=== PATIENT | male | born 1935 | race Caucasian/White ===

== ENCOUNTER 2018-09-15 15:50 | Emergency (ER) | payer OTHER, MEDICAID ==
[~2018-09-15] VITALS: Ht 170.2 cm; Wt 86.6 kg
[~2018-09-15 15:50] MED LIST: ASPIRIN ADULT L81 M4; CILOSTAZOL100 M1 PO; CIPRO500 MG PO; CLINDAMYCIN HC300 MG PO; COL100 PO; COZAAR100 MG PO; LAC PO; LANTUS SOLOS100 U/M1 SQ; METFORMIN HCL1000 MG PO; NORCO1 TA2 PO; PIOGLITAZONE30 M1 PO; SIMVASTATIN10 M1 PO; [UNRECOGNIZED DRUG - OTHER] PO
[2018-09-15 15:53] VITALS: Ht 170.2 cm; Wt 86.6 kg
[2018-09-15 18:36] LABS: BASOPHIL % 0.2 % (0-2); PLATELET COUNT 274 x10^3mcL (130-400)
[2018-09-15 18:40] LABS: RED CELL DISTRIBUTION WIDTH 14.9 % (11.5-14.5)
[2018-09-15 18:44] LABS: CALCIUM 8.7 mg/dL (8.5-10.1); CARBON DIOXIDE 21.9 mmol/L (21-32); CHLORIDE SERUM 102 mmol/L (98-107); GLUCOSE SERUM 150 mg/dL (74-106); POTASSIUM SERUM 3.9 mmol/L (3.5-5.1); SODIUM SERUM 137 mmol/L (136-145)
[2018-09-15 18:48] LABS: ALBUMIN 3.6 g/dL (3.4-5.0); ALKALINE PHOSPHATASE 84 U/L (46-116); AST/SGOT 26 U/L (15-37); BILIRUBIN TOTAL 0.34 mg/dL (0.20-1.00); TOTAL PROTEIN, SERUM 7.7 g/dL (6.4-8.2)
[2018-09-15 18:56] LABS: ALT/SGPT 20 U/L (16-63)
[2018-09-15 20:21] VITALS: BP 135/85
== END 2018-09-15 20:21 | disposition home or self-care (01) ==
LOC: ED 15:50
PROVIDERS: Emergency Medicine
DX: R06.02 Shortness of breath (principal); R09.81 Nasal congestion
CPT/HCPCS: 36415; 83880; Q0092

== ENCOUNTER 2019-11-02 13:12 | Emergency (ER) | payer OTHER, MEDICAID ==
[~2019-11-02] VITALS: Ht 170.2 cm; Wt 91.6 kg
[2019-11-02 13:20] VITALS: Ht 170.2 cm; Wt 91.6 kg
[2019-11-02 14:39] LABS: CARBON DIOXIDE 23.9 mmol/L (21-32); CHLORIDE SERUM 103 mmol/L (98-107); SODIUM SERUM 139 mmol/L (136-145)
[2019-11-02 14:40] LABS: ALBUMIN 3.9 g/dL (3.4-5.0); BILIRUBIN TOTAL 0.3 mg/dL (0.20-1.00); CALCIUM 8.9 mg/dL (8.5-10.1); CREATININE SERUM 1.9 mg/dL (0.7-1.3); GLUCOSE SERUM 138 mg/dL (74-106); TOTAL PROTEIN, SERUM 7.7 g/dL (6.4-8.2)
[2019-11-02 14:41] LABS: ALKALINE PHOSPHATASE 83 U/L (46-116); ALT/SGPT 18 U/L (16-63); AST/SGOT 23 U/L (15-37)
[2019-11-02 14:52] LABS: BASOPHIL % 0.4 % (0-2); PLATELET COUNT 289 x10^3mcL (130-400); RED CELL DISTRIBUTION WIDTH 21.7 % (11.5-14.5)
[2019-11-02 16:36] LABS: microscopic required? NO
[2019-11-02 16:49] VITALS: BP 146/72
[2019-11-02 16:53] LABS: urine erythrocyte NEGATIVE (NEGATIVE)
== END 2019-11-02 16:49 | disposition home or self-care (01) ==
LOC: ED 13:12
PROVIDERS: Emergency Medicine
DX: R06.00 Dyspnea, unspecified (principal); R06.02 Shortness of breath; R63.5 Abnormal weight gain; I50.9 Heart failure, unspecified; R14.0 Abdominal distension (gaseous); E11.9 Type 2 diabetes mellitus without complications; E78.00 Pure hypercholesterolemia, unspecified; Z88.0 Allergy status to penicillin; Z88.8 Allergy status to other drugs, medicaments and biological substances
CPT/HCPCS: 83880; J1940; Q0092